=== PATIENT | female | born 1975 | race Two or more races ===

== ENCOUNTER 2020-12-04 07:58 | Emergency (ER) | payer MEDICAID, OTHER ==
[~2020-12-04] VITALS: Ht 162.6 cm; Wt 83.9 kg
[2020-12-04 07:59] VITALS: BP 166/91
[2020-12-04] MEDS ORDERED: KETOROLAC TROMETH 60MG/2ML VIAL IM ONE (08:45)
== END 2020-12-04 10:12 | disposition home or self-care (01) ==
LOC: ER 07:58
DX: M72.2 Plantar fascial fibromatosis (principal); J45.909 Unspecified asthma, uncomplicated; I10 Essential (primary) hypertension; F17.210 Nicotine dependence, cigarettes, uncomplicated; Z90.49 Acquired absence of other specified parts of digestive tract; Z98.51 Tubal ligation status
CPT/HCPCS: 73630; 96372; 99283; J1885

== ENCOUNTER 2021-02-24 22:22 | Emergency (ER) | payer MEDICAID ==
[~2021-02-24] VITALS: Ht 162.6 cm; Wt 79.4 kg
[2021-02-25 01:39] VITALS: BP 163/107
[2021-02-25] MEDS ORDERED: ACETAMINOPHEN 500 MG TAB PO ONE (01:45)
[2021-02-25] MEDS ORDERED: cloNIDine HCL 0.1 MG TAB PO ONE (01:45)
== END 2021-02-25 01:59 | disposition home or self-care (01) ==
LOC: ER 22:22
DX: I10 Essential (primary) hypertension (principal); E66.9 Obesity, unspecified; J45.909 Unspecified asthma, uncomplicated; F17.210 Nicotine dependence, cigarettes, uncomplicated; Z68.30 Body mass index [BMI] 30.0-30.9, adult; Z76.0 Encounter for issue of repeat prescription; Z90.49 Acquired absence of other specified parts of digestive tract

== ENCOUNTER 2021-05-04 06:07 | Emergency (ER) | payer MEDICAID ==
[~2021-05-04] VITALS: Ht 162.6 cm; Wt 79.4 kg
[2021-05-04 06:08] VITALS: BP 144/101
== END 2021-05-04 07:31 | disposition home or self-care (01) ==
LOC: ER 06:07
DX: J06.9 Acute upper respiratory infection, unspecified (principal); J45.909 Unspecified asthma, uncomplicated; I10 Essential (primary) hypertension; F17.210 Nicotine dependence, cigarettes, uncomplicated; F12.10 Cannabis abuse, uncomplicated; Z90.49 Acquired absence of other specified parts of digestive tract; Z98.51 Tubal ligation status
CPT/HCPCS: 71045